=== PATIENT | male | born 2000 | race Caucasian/White ===

== ENCOUNTER 2020-10-31 08:06 | Outpatient (CLI) | payer OTHER, SELFPAY ==
[2020-10-31 08:21] LABS: Hematocrit 47.5 % (40.0-54.0); Hemoglobin 16.3 g/dL (14.0-18.0); Mean Corpuscular HGB Conc 34.3 g/dL (32.0-36.0); Mean Corpuscular Volume 87.3 fL (78.0-102.0); Mean Platelet Volume 8.9 fl (8.7-11.0); Platelet Count Result 266 K/mm3 (150-420); Red Blood Count 5.44 M/mm3 (4.70-6.10); Red Cell Distribution Width 12.1 % (11.6-14.4); White Blood Count 5.4 K/mm3 (4.8-10.8)
[2020-10-31 09:49] LABS: Alanine Aminotransferase 72 U/L (16-63); Albumin Level 4.3 g/dL (3.4-5.0); Alkaline Phosphatase 75 U/L (46-116); Anion Gap 8 mmol/L (8-16); Aspartate Amino Transferase 32 U/L (15-37); Bilirubin,Total 0.7 mg/dL (0.00-1.00); Blood Urea Nitrogen 10 mg/dL (7-18); Calcium 8.8 mg/dL (8.5-10.1); Carbon Dioxide 29 mmol/L (21-32); Chloride 103 mmol/L (98-108); Estimated Glomerular Filt Rate > 60; Glucose 92 mg/dL (70-99); Osmolality Calculated 289 mOsm/kg (285-295); Potassium 3.8 mmol/L (3.5-5.1); Sodium 140 mmol/L (136-145); Total Protein 7.2 g/dL (6.4-8.2)
[2020-10-31 09:50] LABS: Thyroid Stimulating Hormone Reflex 2.27 u/IU/mL (0.36-3.74)
[2020-10-31 09:54] LABS: HIV 1 P24 AG Negative (Negative); HIV 1/2 AB Negative (Negative)
== END 2020-10-31 08:07 | disposition home or self-care (01) ==
LOC: CHSLAB 08:11
PROVIDERS: PCP Family Medicine; Visit Provider Family Medicine
DX: Z00.00 Encounter for general adult medical examination without abnormal findings (principal); E11.9 Type 2 diabetes mellitus without complications
CPT/HCPCS: 36415; 80053; 84443; 85027; 86703

== ENCOUNTER 2024-05-07 12:32 | Outpatient (NON) | payer OTHER, SELFPAY | END 2024-05-07 12:33 | disposition home or self-care (01) | LOC: CHSLAB 12:34 | PROVIDERS: Visit Provider Family Medicine | DX: D22.9 Melanocytic nevi, unspecified (principal) | CPT/HCPCS: 88305 ==

== ENCOUNTER 2024-10-31 13:27 | Emergency (ER) | payer OTHER, SELFPAY ==
--- NOTE | ~2024-10-31 | US_ITS ---
TESTICULAR ULTRASOUND (Doppler ultrasound interrogation techniques used as needed for this exam.) Ordering provider: Abimael Gutierrez MD History: . right testicular pain rule out torsion . Comparison: None. FINDINGS: TESTICLES: Normal in size. The right measures 3.3x 2.3x 2 cm and the left measures 2.6x 2.2x 2.2 cm. Normal echogenicity bilaterally without mass lesion. Normal Doppler flow bilaterally. EPIDIDYMIDES: Normal in size. The right measures 1 cm and the left 0.7 cm. Normal echogenicity bilate rally. Both demonstrate normal Doppler flow. HYDROCELE: Mild left. VARICOCELE: None. OTHER ABNORMALITY: None seen. Edema seen in the subcutaneous tissues of the right and left testicles. IMPRESSION: No definite evidence of torsion. Edema seen in the subcutaneous tissues of the scrotum bilateral. Oth erwise, normal testicular ultrasound. Reviewed, dictated and finalized at location A. IMPRESSION: No definite evidence of torsion. Edema seen in the subcutaneous tissues of the scrotum bilateral. Otherwise, normal testicular ultrasound.
[2024-10-31 13:27] VITALS: BP 143/91; PULSE 143; RESP 16; TEMP 35.8; O2SAT 100
--- NOTE | 2024-10-31 13:42 | ED.MALEGU ---
HPI - Male Genitourinary General Chief complaint: Urogenital-Male Stated complaint: testicular pain Time Seen by Provider: 10/31/24 13:41 Source: patient Mode of arrival: ambulatory Limitations: no limitations History of Present Illness HPI Narrative: 24-year-old male who is on estrogen and progesterone presents to the ED with a 1 day history of -- right testicular pain. No history of trauma. No dysuria or hematuria. no denies discharge. No sexual contact for many months. He had an STI workup on 10/26/2024 which was negative. No fever or chills. MD Complaint: testicle pain and testicle swelling Onset (ago): day(s) ( One day) Duration: constant Location: right testicle Severity: moderate Quality: aching Relieving factors: none Exacerbating factors: none Associated symptoms: Reports denies other symptoms Related Data Sexually active: No Home Medications ?Medication ?Instructions ?Recorded ?Confirmed ?Last Taken ?Type estradiol valerate 20 mg/mL mg IM 05/03/24 Unknown History intramuscular oil progesterone micronized 100 mg mg PO 05/03/24 Unknown History capsule Allergies Allergy/AdvReac Type Severity Reaction Status Date / Time No Known Allergies Allergy Verified 10/31/24 13:36 Review of Systems Review of Systems: All systems reviewed & are unremarkable except as noted in HPI and below Constitutional: Constitutional: Reports as per HPI and Reports no additional constitutional complaints Eyes: Eyes: Reports as per HPI and Reports no additional eye complaints ENT: Reports system reviewed and no additional complaints, except as documented and Reports as per HPI Cardiovascular: Cardiovascular: Reports as per HPI and Reports no additional cardiovascular complaints Respiratory: Respiratory: Reports as per HPI and Reports no additional respiratory complaints Gastrointestinal: Gastrointestinal: Reports as per HPI and Reports no additional gastrointestinal complaints Genitourinary: Genitourinary: Reports no additional male genitourinary complaints Comments: Right testicular pain and swelling Musculoskeletal: Musculoskeletal: Reports no additional musculoskeletal complaints and Reports as per HPI Integumentary/Breasts: Skin/Breast: Reports system reviewed and no additional complaints, except as docu and Reports as per HPI Neurologic: Reports system reviewed and no additional complaints, except as documented and Reports as per HPI Psychiatric: Psychiatric: Reports no additional psychiatric complaints and Reports as per HPI Endocrine: Endocrine: Reports no additional endocrine complaints and Reports as per HPI Hematologic/Lymphatic: Hematologic/Lymphatic: Reports no additional hematologic/lymphatic complaints and Reports as per HPI Allergic/Immunologic: Allergic/Immunologic: Reports no additional allergic/immunologic complaints and Reports as per HPI [facility] Past Medical History Medical History No active medical problems Surgical History Surgical History [place] teeth extracted Family History Family History Grandparent Hypothyroidism Social History Social History Smoking status: Never smoker Alcohol intake: current Alcohol use details: Occasional Living arrangements: with roommate(s) Occupation/Education: occupation Additional occupation/education comments: [employer] Ex[employer] Narrative: blood pressure is 143/91. Afebrile. Oxygen saturation 100% on room air. Const: General: healthy appearing and no acute distress Nutritional Appearance: well nourished Limitations: no limitations and altered mental status HENMT: Head: normal to inspection Face/Nose/Sinus: Normal external nose present Face and sinus: normal facial exam Mouth: Yes Normal oral and palatal mucosa present Throat: posterior oropharynx normal Eyes: Conjunctivae: conjunctivae normal Pupils: Equal, round and reactive pupils present EOM: EOMs intact bilaterally Direct Ophthalmoscopy: no photophobia Neck: Neck: normal visual inspection and no lymphadenopathy Chest: Chest palpation & inspection: normal inspection of the chest Resp: Effort & Inspection: normal respiratory effort Auscultation: clear to auscultation bilaterally Cardio: Rate: regular rate Rhythm: regular rhythm GI: GI Palp: Yes Soft to palpation Auscultation: normal bowel sounds Rectal Exam: normal sphincter tone : General: Yes no CVA tenderness Penis: Yes normal penis Other: Right testicular pain. Pain on elevation of the testicle. Cremasteric reflex is normal. Back/Spine/Pelvis: Back: no CVA tenderness Skin: General skin exam: normal color Rashes: no rashes Wounds: no wounds Neuro: General: patient oriented x3, moves all extremities, no meningeal signs and no focal motor deficits Cranial nerves: Yes CN's II-XII intact bilaterally Speech: normal speech Gait exam (Neuro): Normal gait present Extrem: General: normal to inspection and no clubbing, cyanosis or edema Psych: Mental Status: mental status grossly normal Affect: normal affect Course Course Emergency Course: Right testicular pain-- not sexually active. Recent STI testing was negative. No history of trauma. Would get testicular ultrasound to rule out torsion. Would get blood work and urine test to rule out infection. patient had an unremarkable blood work. Urine was negative for infection. Will treat empirically for Gram-negative with Bactrim. Patient had an ultrasound which was unremarkable for both testicles. Vital Signs Vital signs: Vital Signs Temperature 35.8 C L 10/31/24 13:27 Pulse Rate 143 H 10/31/24 13:27 Respiratory Rate 16 10/31/24 13:27 Blood Pressure 143/91 H 10/31/24 13:27 Pulse Oximetry 100 10/31/24 13:27 Oxygen Delivery Room Air 10/31/24 13:27 Temperature 35.8 C L 10/31/24 13:27 Pulse Rate 143 H 10/31/24 13:27 Respiratory Rate 16 10/31/24 13:27 Blood Pressure 143/91 H 10/31/24 13:27 Pulse Oximetry 100 10/31/24 13:27 Oxygen Delivery Room Air 10/31/24 13:27 MDM - Male Genitourinary MDM Narrative Medical decision making narrative: Testicular pain/ Epidymo-orchitis Differential Diagnosis Differential diagnosis: Likely urinary tract infection Medical Records Attestation: I reviewed the patient's medical records. Lab Data Attestation: I reviewed the patient's lab results. 10/31/24 14:01 10/31/24 14:01 Labs: Lab Results 10/31/24 10/31/24 Range/Units 13:36 14:01 WBC 7.0 (4.8-10.8) K/mm3 RBC 4.35 L (4.70-6.10) M/mm3 Hgb 13.2 L (14.0-18.0) g/dL Hct 39.0 L (40.0-54.0) % MCV 89.7 (78.0-102.0) fL MCH 30.3 (27.0-31.0) pg MCHC 33.8 (32-36) g/dL RDW 11.7 (11.6-14.4) % Plt Count 248 (150-420) K/mm3 MPV 9.4 (8.7-11.0) fl Immature Gran % (Auto) 0.4 H (0.0-0.0) % Neut % (Auto) 76.0 H (50.0-70.0) % Lymph % (Auto) 17.5 L (18.0-42.0) % [place] % (Auto) 5.6 (2.0-11.0) % Eos % (Auto) 0.4 L (1.0-6.0) % Baso % (Auto) 0.1 (0.0-1.0) % Lymph # (Auto) 1.23 (1.10-4.50) K/mm3 [place] # (Auto) 0.39 (0.10-0.90) K/mm3 Eos # (Auto) 0.03 (0.02-0.50) K/mm3 Baso # (Auto) 0.01 (0.00-0.10) K/mm3 Abs Immat Gran (auto) 0.03 H (0.00-0.00) K/mm3 Absolute Neuts (auto) 5.32 (1.70-7.20) K/mm3 Absolute Nucleated RBC 0.00 (0.00-0.00) K/mm3 Nucleated RBC % 0.0 (0-0.0) % Sodium 139 (136-145) mmol/L Potassium 3.6 (3.5-5.1) mmol/L Chloride 102 (98-108) mmol/L Carbon Dioxide 26 (21-32) mmol/L Anion Gap 11 (4-12) mmol/L BUN 6 L (7-18) mg/dL Creatinine 0.93 (0.70-1.30) mg/dL Estim Creat Clear Calc 123 ml/min Estimated GFR > 60 (59 - ) Glucose 101 H (70-99) mg/dL Calculated Osmolality 285 (285-295) mOsm/kg Calcium 8.3 L (8.5-10.1) mg/dL Total Bilirubin 0.4 (0.00-1.00) mg/dL AST 11 L (15-37) U/L ALT 15 L (16-63) U/L Alkaline Phosphatase 60 (46-116) U/L Total Protein 6.7 (6.4-8.2) g/dL Albumin 3.8 (3.4-5.0) g/dL Urine Color Light yellow (Yellow) Urine Appearance Clear (Clear) Urine pH 7.0 (5.0-8.0) Ur Specific [place] 1.010 (1.010-1.020) Urine Protein Negative (Negative) Urine Glucose (UA) Negative (Negative) Urine Ketones Negative (Negative) Ur Blood (Man) Negative (Negative) Urine Nitrate Negative (Negative) Urine Bilirubin Negative (Negative) Urine Urobilinogen 0.2 (0.2-1.0) mg/dL Leukocyte Esterase Rfl Negative (Negative) LEENA/UL Discharge Plan Discharge Clinical Impression: Epididymitis Patient Disposition: Home Condition: Stable Instructions: Antibiotic Form, Epididymo-Orchitis (ED) Patient Language: Serbian Prescriptions: New sulfamethoxazole-trimethoprim [Bactrim DS] 800-160 mg tablet 1 tablet PO Q12H Qty: 20 0RF No Action progesterone micronized 100 mg capsule PO estradiol valerate 20 mg/mL oil IM Follow-up/Referrals: Devonte Osei DO [Primary Care Provider] - Time of Disposition: 15:03
[2024-10-31 13:59] LABS: Add Urine Microscopic? NO; Appearance Urine Clear (Clear); Bilirubin Urine Negative (Negative); Blood Urine Negative (Negative); Color Urine Light Yellow (Yellow); Glucose Urine UA Negative (Negative); Ketones Urine Negative (Negative); Leukocyte Esterase Ur Negative LEU/UL (Negative); Nitrate Urine Negative (Negative); Protein Urine Negative (Negative); Urobilinogen Urine 0.2 mg/dL (0.2-1.0)
[2024-10-31 14:06] LABS: Basophils Absolute Auto 0.01 K/mm3 (0.00-0.10); Basophils Percent Auto 0.1 % (0.0-1.0); Eosinophils Absolute Auto 0.03 K/mm3 (0.02-0.50); Eosinophils Percent Auto 0.4 % (1.0-6.0); Hemoglobin 13.2 g/dL (14.0-18.0); Immature Granulocyte Absolute 0.03 K/mm3 (0.00-0.00); Immature Granulocyte Percent A 0.4 % (0.0-0.0); Lymphocytes Absolute Auto 1.23 K/mm3 (1.10-4.50); Lymphocytes Percent Auto 17.5 % (18.0-42.0); Mean Corpuscular HGB Conc 33.8 g/dL (32-36); Mean Corpuscular Hemoglobin 30.3 pg (27.0-31.0); Mean Corpuscular Volume 89.7 fL (78.0-102.0); Mean Platelet Volume 9.4 fl (8.7-11.0); Monocytes Absolute Auto 0.39 K/mm3 (0.10-0.90); Monocytes Percent Auto 5.6 % (2.0-11.0); Neutrophils Absolute Auto 5.32 K/mm3 (1.70-7.20); Platelet Count Result 248 K/mm3 (150-420); Red Blood Count 4.35 M/mm3 (4.70-6.10); Red Cell Distribution Width 11.7 % (11.6-14.4)
[2024-10-31 14:43] LABS: Alanine Aminotransferase 15 U/L (16-63); Albumin Level 3.8 g/dL (3.4-5.0); Alkaline Phosphatase 60 U/L (46-116); Anion Gap 11 mmol/L (4-12); Aspartate Amino Transferase 11 U/L (15-37); Bilirubin,Total 0.4 mg/dL (0.00-1.00); Blood Urea Nitrogen 6 mg/dL (7-18); Calcium 8.3 mg/dL (8.5-10.1); Carbon Dioxide 26 mmol/L (21-32); Chloride 102 mmol/L (98-108); Estimated CRCL calculation 123 ml/min; Estimated Glomerular Filt Rate > 60; Glucose 101 mg/dL (70-99); Osmolality Calculated 285 mOsm/kg (285-295); Potassium 3.6 mmol/L (3.5-5.1); Sodium 139 mmol/L (136-145); Total Protein 6.7 g/dL (6.4-8.2)
[2024-10-31 15:07] VITALS: BP 123/69; PULSE 72; RESP 16; TEMP 36.3; O2SAT 99
== END 2024-10-31 15:13 | disposition home or self-care (01) ==
PROVIDERS: Emergency Provider Internal Medicine Critical Care Medicine; PCP Family Medicine
DX: N45.1 Epididymitis (principal)
CPT/HCPCS: 36415; 76870; 80053; 81003; 85025; 93976; 99284